=== PATIENT | female | born 1990 | race Caucasian/White ===

== ENCOUNTER 2017-02-15 13:47 | Emergency (ER) | payer OTHER ==
--- NOTE | 2017-02-15 16:19 | ED ORDER SUMMARY ---
..... Patient: DALLAS RODGERS OrderSheet [facility] VisitID: [id number] [place] [address] 26y, F Registration Date/Time: 02/15/2017 ORDER SHEET Weight: 81.6 kg (stated) Allergies: Codeine GENERAL ORDERS: CBC w Diff Urgent (14:12 02/15/2017 PHutchinson DO) (Ack 14:17 RKaruga) (14:49 Champ R.N.) CMP Urgent (14:12 02/15/2017 PHutchinson DO) (Ack 14:17 RKaruga) (14:49 Champ R.N.) UA-Culture if indicated Urgent (14:12 02/15/2017 PHutchinson DO) (Ack 14:17 RKaruga) (14:49 Champ R.N.) Urine Drug Screen Urgent (14:12 02/15/2017 PHutchinson DO) (Ack 14:17 RKaruga) (14:49 Chapm R.N.) Urine Urgent (14:12 02/15/2017 PHutchinson DO) (Ack 14:17 RKaruga) (14:49 Champ R.N.) PCT (Procalcitonin) Urgent (14:12 02/15/2017 PHutchinson DO) (Ack 14:17 RKaruga) (14:49 Champ R.N.) TSH Urgent (14:13 02/15/2017 PHutchinson DO) (Ack 14:17 RKaruga) (14:49 Champ R.N.) Keno Writer (Continuous) (14:14 02/15/2017 PHutchinson DO) (14:16 Champ R.N.) Rapid Influenza Screen (Nasal Pharyngeal) (new car salesperson swab) Urgent (15:32 02/15/2017 PHutchinson DO) (Ack 15:36 Jony) (15:39 DIRKanders R.N.) MEDICATION ORDERS: Phenergan IV 12.5 mg (HIGH ALERT MEDICATION, NOW) (14:12 02/15/2017 PHutchinson DO) (Ack 14:16 Champ R.N.) (14:51 Champ R.N.) IV FLUIDS: IV NS : initial bolus 1000 mL (1000 mL/hr), then 500 mL/hr for X2 (NOW) (14:11 02/15/2017 [facility]) (Ack 14:16 Champ R.N.) (14:50 Champ R.N.) Zofran IV 4 mg (NOW) (14:11 02/15/2017 [facility]) (Ack 14:16 Champ R.N.) (14:50 Champ R.N.) Ativan IV 0.5 mg (HIGH ALERT MEDICATION, NOW) (14:12 02/15/2017 [facility]) (Ack 14:16 Champ R.N.) (14:51 Champ R.N.) Benadryl IV 50 mg (NOW) (14:12 02/15/2017 [facility]) (Ack 14:16 Champ R.N.) (Cancelled: Patient Vcwphal03:51 Champ R.N.) Dilaudid IV 1 mg (HIGH ALERT MEDICATION, NOW) (15:32 02/15/2017 [facility]) (15:51 Quirino R.N.) ORDER SHEET NOTES: [Electronically signed by Monalisa Espinoza R.N. (16:39 02/15/2017)] [Electronically signed by Robbin Mabry DO (18:01 02/15/2017)] [Electronically locked/signed by Monalisa Espinoza R.N. (16:39 02/15/2017)]
--- NOTE | 2017-02-15 16:19 | ED CLINICAL REPORT ---
Clinical Report - Physicians/Mid Levels [facility] [address] [place] [address] 02/15/2017 13:47 Patient: DALLAS RODGERS Time Seen: 14:01. Arrived- By private vehicle. Historian- patient. HISTORY OF PRESENT ILLNESS Chief Complaint: HEADACHE, DIZZINESS and NAUSEA (near syncope). This started about 2 hours ago and is still present. It was gradual in onset and has been waxing/waning. At its maximum, severity described as severe. When seen in the E.D., severity described as moderate. Modifying factors. Not worsened by anything. Not relieved by anything. The patient has had a headache. The headache has been similar to previous ones, fatigue and muscle aches. (Pt states she's under a lot of stress right now; concerned about loosing her job.). Similar symptoms previously: Recent medical care: The patient was seen recently in a clinic. REVIEW OF SYSTEMS The patient has had fever (6 days ago). No sore throat, difficulty breathing, chest pain, abdominal pain or nausea. No vomiting, diarrhea, black stools, bloody stools or difficulty with urination. No skin rash, calf pain or blackouts. The patient has had sinus drainage, nasal congestion and a mild cough and headache. She has had back pain. It has been similar to previous symptoms. No difficulty with ambulation. All systems otherwise negative, except as recorded above. PAST HISTORY Primary physician: Dr Whitt PROBLEMS: Cellulitis. Chronic Back Pain. Headache. Back Pain. Anxiety disorder. Ovarian Cyst. STD - Sexually Transmitted Disease. Pelvic Pain. Vaginal Discharge. Vaginitis. Pelvic Inflammatory Disease. Fall. Sprain. Ovarian Cyst [RuleOut]. SURGERIES: . Dilatation & Curettage. Knee Surgery. Laparoscopy. Tubal Ligation. SOCIAL HISTORY Never smoker. No alcohol use or drug use. Is a local resident. ADDITIONAL NOTES The nursing notes have been reviewed. PHYSICAL EXAM Vital Signs: 02/15/2017 13:54 BP: 126/88. HR: 89. RR: 18. O2 saturation: 98%. Temp: 98.1 F. Pain level now: 610. Appearance: Alert. Anxious. Patient in mild distress. Eyes: Eyes normal inspection. No scleral icterus or pale conjunctivae. ENT: Tenderness present to percussion/palpation of the sinuses: moderate right and left frontal tenderness, mild right and left ethmoid tenderness. No tenderness over the maxillary sinuses. Pharynx normal. No pharyngeal erythema or tonsillar exudate. The mucous membranes are not dry. Neck: Normal inspection. Neck supple. No meningeal signs. No neck stiffness or nuchal rigidity. Negative Brudzinski's sign and Kernig's sign. No JVD, carotid bruit or lymphadenopathy. CVS: Normal heart rate and rhythm. Heart sounds normal. Pulses normal. Respiratory: No respiratory distress. Breath sounds normal. Chest nontender. No decreased air movement, rales, rhonchi, wheezes or prolonged expiration. Abdomen: No visible injury. Soft and nontender. No mass. Obese. Back: Normal inspection. Skin: Skin warm and dry. Normal skin color. No rash. Normal skin turgor. Extremities: Extremities exhibit normal ROM. No lower extremity edema. Neuro: Oriented X 3. No motor deficit. No sensory deficit. Reflexes normal. Reflex exam: right biceps 2+, left biceps 2+, right patellar 2+, left patellar 2+, right Achilles 2+ and left Achilles 2+. LABS, X-RAYS, AND EKG Laboratory Tests: UA-Culture if indicated: (WILLIAM: 02/15/2017 14:30) ( MsgRcvd 02/15/2017 15:01) Final results Test Result Flag Units (Reference) URINE COLOR YELLOW URINE APPEARANCE CLEAR URINE GLUCOSE NEGATIVE (NEGATIVE) URINE BILIRUBIN NEGATIVE (NEGATIVE) URINE KETONE NEGATIVE (NEGATIVE) URINE SPECIFIC GRAVITY 1.015 (1.010-1.030) URINE PH 7.5 (5.0-8.0) URINE PROTEIN NEGATIVE (NEGATIVE) URINE UROBILINOGEN 0.2 EU/dL (0.2-1.0) URINE NITRITE NEGATIVE (NEGATIVE) URINE BLOOD NEGATIVE (NEGATIVE) URINE LEUK ESTERASE NEGATIVE (NEGATIVE) URINE RBC NONE SEEN rbc/hpf (0-1) URINE WBC NONE SEEN wbc/hpf (0-1) URINE EPITHELIAL CELLS 0-1 EPI/hpf (0-5) URINE BACTERIA NONE SEEN (NONE SEEN) URINE COMMENT CULT NOT INDICATED URINE CULTURES ARE SET-UP BASED ON THE FOLLOWING CRITERIA:POSITIVE NITRITEPOSITIVE LEUKOCYTE ESTERASEGREATER THAN 10 WHITE BLOOD CELLSMODERATE (2+) OR GREATER BACTERIA Urine: (WILLIAM: 02/15/2017 14:30) ( [facility] 02/15/2017 14:58) Final results Test Result Flag Units (Reference) URINE NEGATIVE CBC w Diff: (WILLIAM: 02/15/2017 14:35) ( [facility] 02/15/2017 15:00) Final results Test Result Flag Units (Reference) WHITE BLOOD COUNT 6.0 K/uL (4.5-11.5) RED BLOOD COUNT 4.10 M/uL (4.00-5.20) HEMOGLOBIN 11.8 L gm/dL (12.0-16.0) HEMATOCRIT 35.4 L % (36.0-46.0) MEAN CELL VOLUME 86 fL (80-100) MEAN CORPUSCULAR HGB 29 pg (26-34) MEAN CORPUSCULAR HGB CONC 33 g/dL (31-37) RED CELL DISTRIBUTION WIDTH 13.5 % (11.6-14.8) PLATELET COUNT 215 K/uL (150-400) NEUTROPHIL % 54.9 % (50-75) LYMPH % 33.7 % (25-40) MONO % 6.4 % (3-14) EOSINOPHIL % 3.9 % (0-4) BASOPHIL % 1.1 % (0-2) Urine Drug Screen: (WILLIAM: 02/15/2017 14:30) ( [facility] 02/15/2017 15:13) Final results Test Result Flag Units (Reference) AMPHETAMINE/METHAMPHETAMINE NEGATIVE (NEGATIVE) BARBITURATE NEGATIVE (NEGATIVE) BENZODIAZEPINE NEGATIVE (NEGATIVE) CANNABINOID NEGATIVE (NEGATIVE) COCAINE NEGATIVE (NEGATIVE) ECSTASY NEGATIVE (NEGATIVE) METHADONE NEGATIVE (NEGATIVE) OPIATE NEGATIVE (NEGATIVE) The urine drug screen is a qualitative screening test fordrug overdose and abuse. All screen results should beconsidered as presumptive.Drugs screened for are as follows:BenzodiazepinesCocaineAmphetamines/MetamphetaminesTHC (Tetrahydrocannabinol)OpiatesBarbituratesEcstasyMethadonePositive results are unconfirmed. For confirmation, notifythe lab for the specimen to be sent to the reference lab.All confirmations must be performed by a differentmethodology.The ingestion of natural herbal and plant productscontaining Ephedra/Ephedra metabolites can produce in urineone or more substances capable of cross reacting withamphetamine/methamphetamine immunoassays. These testsprovide a preliminary result only. A more specificalternative chemical method must be used to obtain aconfirmed analytical result. [id number]: (WILLIAM: 02/15/2017 14:35) ( MsgRcvd 02/15/2017 15:51) Final results Test Result Flag Units (Reference) PROCALCITONIN <0.5 ng/mL (0-0.5) PCT Concentration: Interpretation : Risk/option for action PCT <=0.5 ng/mL : Systemic : Low risk forinfection(sepsis): progression to severeis not likely. : systemic infection.Local bacterial : CAUTION-PCT levelsinfection is : below 0.5 ng/mL do notpossible. : exclude an infection,because localizedinfections (withoutsystemic signs) may beassociated with suchlow levels. If PCT ismeasured very earlyafter a bacterialchallenge (usually <6hours), these valuesmay still be low. Inthis case PCT shouldbe re-assessed 6-24hours later. PCT >0.5 and : Systemic infection: Moderate risk for<= 2 ng/mL : (sepsis) is : progression to severepossible, but : systemic infection.other conditions : The patient should beare known to : closely monitoredelevate PCT. : both clinically andby re-assessing PCTwithin 6-24 hours. PCT > 2 ng/mL : Systemic infection: High risk for(sepsis) is likely: progression to severeunless other : systemic infection.causes are known. : PCT >= 10 ng/mL : Important systemic: High likelihood ofinflammatory : severe sepsis orresponse, almost : septic shock.exclusively due to:severe bacterial :sepsis or septic :shock. : CMP: (WILLIAM: 02/15/2017 14:35) ( MsgRcvd 02/15/2017 15:23) Final results Test Result Flag Units (Reference) GLUCOSE 98 mg/dL (70-110) BUN 9 mg/dL (7-18) CREATININE 0.8 mg/dL (0.6-1.3) Estimated GFR >60 mL/min Estimated GFR- >60 mL/min Note: Persistent reduction over 3 months in eGFR<60 mL/min/1.73 m2 defines CKD. Patients with eGFR values>=60 mL/min/1.73 m2 may also have CKD if evidence ofpersistent proteinuria. Additional information may be foundat www.kidney.org. SODIUM 138 mmol/L (136-145) POTASSIUM 4.0 mmol/L (3.5-5.1) CHLORIDE 102 mmol/L (98-107) CARBON DIOXIDE 29 mmol/L (21-32) CALCIUM 9.0 mg/dL (8.5-10.1) TOTAL PROTEIN 7.3 g/dL (6.4-8.2) ALBUMIN 3.6 g/dL (3.3-5.0) BILIRUBIN, TOTAL 0.2 mg/dL (0.0-1.0) ALKALINE PHOSPHATASE 102 U/L (46-116) AST (SGOT) 13 L U/L (15-37) ALT (SGPT) 25 U/L (12-78) THYROID STIMULATING HORMONE 0.885 uIU/mL (0.34-3.74) Rapid Influenza Screen: (WILLIAM: 02/15/2017 15:45) ( MsgRcvd 02/15/2017 16:06) Final results SPECIMEN DESCRIPTION: ANIMAL NUTRITION TEACHER SWAB Test Result Flag Units (Reference) RAPID INFLUENZA SCREEN DATE: 02/15/17 INFLUENZA A: NEGATIVE SCREEN FOR INFLUENZA A INFLUENZA B: NEGATIVE SCREEN FOR INFLUENZA B . Pulse Oximetry: 02/15/2017 13:54 O2 saturation: 98%. (FIO2 - room air). Interpretation: normal. PROGRESS AND PROCEDURES Course of Care: Normal Saline 1 liter IVPB given. Ativan 0.5mg IVP given. Benadryl 50 mg IVP given. Phenergan 12.5 mg IVP given. Zofran 4 mg IVP given. Dilaudid 1 mg IVP given. Patient is stable. Physical exam findings are improved. Symptoms better. Pt with prominent URI symptoms with marked sinus congestion. No meningeal signs or current fever or indication for CT or LP. I evaluated her in the ED aobut 1 1/2 years ago for a nonspecific, vascular HYLTON with a normal CT head at the time. She also admits to "a lot" of stress and anxiety. Radiation risk > likely benefit at this time (for CT). She will need close out pt follow up - I have arranged for next day f/u with her pcp's office. She will return to the ED and / or report to her pcp for new or worsening symptoms or any concerns. Patient/family counseled. Old ED records reviewed. Patient has had multiple ED visits (PDMP: #90 7.5 mg hydrocodone / apap on 12/30/2016 - Emma Negrete; 4 unique prescribers of narcotics in past 12 months; ROCAEL with 3 visits to [facility] ED in past 12 months). Disposition: Discharged. Condition: stable and improved. CLINICAL IMPRESSION Acute vascular headache. No aura. Acute ethmoidal and frontal sinusitis Acute viral sinusitis. Anxiety reaction. INSTRUCTIONS Do not work for three days. (Please see our "Pain Care Plan" - we can only use narcotic medications a maximum of three times in a 12 month period.). Warnings: Further evaluation is necessary. It is very important to follow up with a physician. SEDATIVE MEDICATION: You were given sedative medication during your visit. Do not drive or operate dangerous machinery. CONTROLLED SUBSTANCE WARNINGS. GENERAL WARNINGS: Return or contact your physician immediately if your condition worsens or changes unexpectedly, if not improving as expected, or if other problems arise. Your Current Medications: CONTINUE TAKING THE FOLLOWING MEDICATIONS: Flonase Nasal. Ibuprofen Oral. Vitamins Oral. PROzac Oral. Prescription Medications: Hydrocodone/APAP 5mg / 325mg: take 1 orally every 6 hours as needed for pain. Dispense ten (10). No refill. OTC Medications: Take nasal spray decongestant (such as Afrin) according to label instructions. Available over the counter. Acetaminophen (available over the counter): take according to label instructions. Motrin (available over the counter): take according to label instructions. Follow-up with: [facility], , , [address] [place] [address], , [place], Follow up tomorrow. Reason for referral: AN APPOINTMENT HAS BEEN MADE FOR YOU WITH YOUR DOCTOR'S OFFICE - DR WHITT - AT 1:00 PM TOMORROW - AT THE [facility] AT [address] [place] [address] IN [facility]. (Electronically signed by Robbin Mabry DO 02/15/2017 18:01)
--- NOTE | 2017-02-15 16:19 | ED NURSING NOTES ---
Clinical Report - Nurses [facility] [place] [address] 02/15/2017 13:47 Patient: DALLAS RODGERS TRIAGE Triage time 13:54. Acuity: LEVEL 3. Chief Complaint: HEADACHE, DIZZINESS and NAUSEA (near syncope). Alert. --14:02 Janna Garcia R.N. 13:54 02/15/17. BP: 126/88. HR: 89. RR: 18. O2 saturation: 98% on room air. Temp: 98.1 F (oral). Pain level now: 04/27. --14:02 Janna Garcia R.N. Weight: 81.6 kg stated. Height/Length: 65 inches Per Patient. BMI: 30. --13:59 Janna Garcia R.N. Medications PROzac Oral. --13:57 Janna Garcia R.N. Flonase Nasal. --13:57 Janna Garcia R.N. Vitamins Oral. --13:57 Janna Garcia R.N. Ibuprofen Oral. --13:58 Janna Garcia R.N. Medication/allergy information source: the patient. --14:02 Janna Garcia R.N. Allergies Codeine. --13:57 Janna Garcia R.N. History Arrived by private vehicle. Historian: patient. Accompanied by family. Primary physician (Jose Eduardo). Onset. (about 2 hours). ( states she's under a lot of stress right now , used 2 of her medications and then the symptoms started today). PAST MEDICAL HX: Last normal menstrual period- Aug 2016, had a baby and continues to breastfeed. SOCIAL HX: Never smoker. No alcohol use or drug use. FALL RISK ASSESSMENT: Fall risk assessment completed. No fall risk identified. FUNCTIONAL ASSESSMENT: Functional assessment: no impairments noted. LEARNING NEEDS ASSESSMENT: The learning needs assessment revealed no barriers. --14:02 Janna Garcia R.N. PROBLEMS: Cellulitis. Chronic Back Pain. Headache. Back Pain. Anxiety disorder. Ovarian Cyst. STD - Sexually Transmitted Disease. Pelvic Pain. Vaginal Discharge. Vaginitis. Pelvic Inflammatory Disease. Fall. Sprain. --13:58 Janna Garcia R.N. Ovarian Cyst [RuleOut]. --13:58 Janna Garcia R.N. ADDITIONAL SURGERIES: . Dilatation & Curettage. Knee Surgery. Laparoscopy. Tubal Ligation. --13:58 Janna Garcia R.N. Assessment GENERAL / NEURO / PSYCH: The patient is awake and alert, is oriented and cooperative and appears uncomfortable. She has poor eye contact. RESPIRATORY: Respirations not labored. SKIN: Skin is warm and dry. --14:02 Janna Garcia R.N. Interventions ID and allergy band on patient. To treatment room. --14:02 Janna Garcia R.N. PHYSICAL ASSESSMENT 14:06 02/15/17. Ambulatory to room. Patient gowned. GENERAL / NEURO / PSYCH: The patient is awake and alert, is oriented and cooperative and appears uncomfortable. RESPIRATORY: Respirations not labored. SKIN: Skin is warm and dry. --14:06 Janna Garcia R.N. NURSING PROGRESS NOTES 14:07 02/15/17. auto damage estimator, pulse oximeter and NIBP monitor placed on patient. Patient gowned. Head of bed elevated. Call light placed in reach. Side rails up x 1. Bed placed in lowest position. Brakes of bed on. --14:07 Janna Garcia R.N. 14:35 02/15/2017 Site #1 started via IV in the right antecubital space with an 20g angiocath, with aseptic technique and good blood return; one attempt. Blood drawn: rainbow set. Labeled in the presence of the patient and sent to the lab. --14:49 Janna Garcia R.N. 14:50 02/15/2017 Started bag #1 1000 mL IV Fluids IV NS (Saline); at 999 mL/hr over 1 hour(s) via site #1 via IV pump. IV patency established. IV site checked: no pain, redness, or swelling. IV flushed thoroughly pre- and post-medication administration. --14:50 Janna Garcia R.N. 14:50 02/15/2017 Zofran (Ondansetron HCl) IVP 4 mg given over 2 minute(s) via site #1. Allergies verified and confirmed 5 rights. IV patency established. IV site checked: no pain, redness, or swelling. IV flushed thoroughly pre- and post-medication administration. IVP given by RN. --14:50 Janna Garcia R.N. 14:51 02/15/2017 PHENERGAN (Promethazine HCl) IVP 12.5 mg given over 2 minute(s) via site #1. Allergies verified and confirmed 5 rights. IV patency established. IV site checked: no pain, redness, or swelling. IV flushed thoroughly pre- and post-medication administration. IVP given by RN. --14:51 Janna Garcia R.N. 14:51 02/15/2017 Ativan (LORazepam) IVP 0.5 mg given over 2 minute(s) via site #1. Allergies verified, confirmed 5 rights and sedative warning given to the patient. IV patency established. IV site checked: no pain, redness, or swelling. IV flushed thoroughly pre- and post-medication administration. IVP given by RN. --14:51 Janna Garcia R.N. 14:52 pt refused the Benadry because it makes her "anxious", asked if he was giving her "anything for pain". --14:53 Janna Garcia R.N. 15:51 02/15/2017 Dilaudid (HYDROmorphone HCl PF) IVP 1 mg given over 2 minute(s) via site #1. Allergies verified, confirmed 5 rights and sedative warning given to the patient. IV patency established. IV site checked: no pain, redness, or swelling. IV flushed thoroughly pre- and post-medication administration. IVP given by RN. --15:51 Monalisa Espinoza R.N. ( Patient still has HYLTON, she was up to use the restroom and she was placed back on monitors, she says nothing is needed at this time, mother is sitting at patients bedside.). --15:54 Monalisa Espinoza R.N. 15:54 02/15/17. BP: 130/75 (regular adult cuff) taken on the left arm, while lying. HR: 75. RR: 18 (regular). O2 saturation: 98% on room air. Pain level now: 01/25. --15:55 Monalisa Espinoza R.N. 16:15 02/15/2017 Dilaudid IVP Response: pain is improving. Symptoms have improved the patient feels better. --16:15 Monalisa Espinoza R.N. 16:15 02/15/17. BP: 130/75 (regular adult cuff) taken on the left arm, while lying. HR: 74. RR: 16. O2 saturation: 98% on room air. Pain level now: 01/25. --16:16 Monalisa Espinoza R.N. DISPOSITION / DISCHARGE 15:35 02/15/2017 IV Fluids IV NS Discontinued: bag #1 completed. Total amount infused: 1000 mL. IV patency established. IV site checked: no pain, redness, or swelling. IV flushed thoroughly. --15:36 Monalisa Espinoza R.N. 16:29 02/15/2017 Site #1 removed upon discharge. Bandaid applied. --16:29 Monalisa Espinoza R.N. 16:36 02/15/17. Condition at departure: improved. No learning barriers present. Discharge instructions provided and reviewed with the patient. Reviewed warnings (sedative warning with dilaudid). Work note given. Patient verbalized understanding. Written instructions provided in [place]. The patient was discharged by the physician. She was discharged home and accompanied by Boss. She left the Emergency Department ambulatory and via private vehicle. Driving (Boss). ( Patient still feeling drousy and unsteady, will WC patient to the front of hospital for driver medic to coal picker. Patient has no further questions). --16:36 Monalisa Espinoza R.N. 16:27 02/15/17. BP: 121/72 (regular adult cuff) taken on the left arm, while lying. HR: 75. RR: 16 (regular). O2 saturation: 99% on room air. Temp: 97.6 F (oral). Pain level now: 01/25. --16:36 Monalisa Espinoza R.N. Departure time: 16:36 Feb 15 2017. --16:39 Monalisa Espinoza R.N. Locked/Released at 02/15/2017 16:39 by Monalisa Espinoza R.N.
--- NOTE | 2017-02-15 16:19 | ED CLINICAL REPORT ---
Clinical Report - Physicians/Mid Levels [facility] [address] [place] [address] 02/15/2017 13:47 Patient: DALLAS RODGERS Time Seen: 14:01. Arrived- By private vehicle. Historian- patient. HISTORY OF PRESENT ILLNESS Chief Complaint: HEADACHE, DIZZINESS and NAUSEA (near syncope). This started about 2 hours ago and is still present. It was gradual in onset and has been waxing/waning. At its maximum, severity described as severe. When seen in the E.D., severity described as moderate. Modifying factors. Not worsened by anything. Not relieved by anything. The patient has had a headache. The headache has been similar to previous ones, fatigue and muscle aches. (Pt states she's under a lot of stress right now; concerned about loosing her job.). Similar symptoms previously: Recent medical care: The patient was seen recently in a clinic. REVIEW OF SYSTEMS The patient has had fever (6 days ago). No sore throat, difficulty breathing, chest pain, abdominal pain or nausea. No vomiting, diarrhea, black stools, bloody stools or difficulty with urination. No skin rash, calf pain or blackouts. The patient has had sinus drainage, nasal congestion and a mild cough and headache. She has had back pain. It has been similar to previous symptoms. No difficulty with ambulation. All systems otherwise negative, except as recorded above. PAST HISTORY Primary physician: Dr Whitt PROBLEMS: Cellulitis. Chronic Back Pain. Headache. Back Pain. Anxiety disorder. Ovarian Cyst. STD - Sexually Transmitted Disease. Pelvic Pain. Vaginal Discharge. Vaginitis. Pelvic Inflammatory Disease. Fall. Sprain. Ovarian Cyst [RuleOut]. SURGERIES: . Dilatation & Curettage. Knee Surgery. Laparoscopy. Tubal Ligation. SOCIAL HISTORY Never smoker. No alcohol use or drug use. Is a local resident. ADDITIONAL NOTES The nursing notes have been reviewed. PHYSICAL EXAM Vital Signs: 02/15/2017 13:54 BP: 126/88. HR: 89. RR: 18. O2 saturation: 98%. Temp: 98.1 F. Pain level now: 610. Appearance: Alert. Anxious. Patient in mild distress. Eyes: Eyes normal inspection. No scleral icterus or pale conjunctivae. ENT: Tenderness present to percussion/palpation of the sinuses: moderate right and left frontal tenderness, mild right and left ethmoid tenderness. No tenderness over the maxillary sinuses. Pharynx normal. No pharyngeal erythema or tonsillar exudate. The mucous membranes are not dry. Neck: Normal inspection. Neck supple. No meningeal signs. No neck stiffness or nuchal rigidity. Negative Brudzinski's sign and Kernig's sign. No JVD, carotid bruit or lymphadenopathy. CVS: Normal heart rate and rhythm. Heart sounds normal. Pulses normal. Respiratory: No respiratory distress. Breath sounds normal. Chest nontender. No decreased air movement, rales, rhonchi, wheezes or prolonged expiration. Abdomen: No visible injury. Soft and nontender. No mass. Obese. Back: Normal inspection. Skin: Skin warm and dry. Normal skin color. No rash. Normal skin turgor. Extremities: Extremities exhibit normal ROM. No lower extremity edema. Neuro: Oriented X 3. No motor deficit. No sensory deficit. Reflexes normal. Reflex exam: right biceps 2+, left biceps 2+, right patellar 2+, left patellar 2+, right Achilles 2+ and left Achilles 2+. LABS, X-RAYS, AND EKG Laboratory Tests: UA-Culture if indicated: (WILLIAM: 02/15/2017 14:30) ( MsgRcvd 02/15/2017 15:01) Final results Test Result Flag Units (Reference) URINE COLOR YELLOW URINE APPEARANCE CLEAR URINE GLUCOSE NEGATIVE (NEGATIVE) URINE BILIRUBIN NEGATIVE (NEGATIVE) URINE KETONE NEGATIVE (NEGATIVE) URINE SPECIFIC GRAVITY 1.015 (1.010-1.030) URINE PH 7.5 (5.0-8.0) URINE PROTEIN NEGATIVE (NEGATIVE) URINE UROBILINOGEN 0.2 EU/dL (0.2-1.0) URINE NITRITE NEGATIVE (NEGATIVE) URINE BLOOD NEGATIVE (NEGATIVE) URINE LEUK ESTERASE NEGATIVE (NEGATIVE) URINE RBC NONE SEEN rbc/hpf (0-1) URINE WBC NONE SEEN wbc/hpf (0-1) URINE EPITHELIAL CELLS 0-1 EPI/hpf (0-5) URINE BACTERIA NONE SEEN (NONE SEEN) URINE COMMENT CULT NOT INDICATED URINE CULTURES ARE SET-UP BASED ON THE FOLLOWING CRITERIA:POSITIVE NITRITEPOSITIVE LEUKOCYTE ESTERASEGREATER THAN 10 WHITE BLOOD CELLSMODERATE (2+) OR GREATER BACTERIA Urine: (WILLIAM: 02/15/2017 14:30) ( [facility] 02/15/2017 14:58) Final results Test Result Flag Units (Reference) URINE NEGATIVE CBC w Diff: (WILLIAM: 02/15/2017 14:35) ( [facility] 02/15/2017 15:00) Final results Test Result Flag Units (Reference) WHITE BLOOD COUNT 6.0 K/uL (4.5-11.5) RED BLOOD COUNT 4.10 M/uL (4.00-5.20) HEMOGLOBIN 11.8 L gm/dL (12.0-16.0) HEMATOCRIT 35.4 L % (36.0-46.0) MEAN CELL VOLUME 86 fL (80-100) MEAN CORPUSCULAR HGB 29 pg (26-34) MEAN CORPUSCULAR HGB CONC 33 g/dL (31-37) RED CELL DISTRIBUTION WIDTH 13.5 % (11.6-14.8) PLATELET COUNT 215 K/uL (150-400) NEUTROPHIL % 54.9 % (50-75) LYMPH % 33.7 % (25-40) MONO % 6.4 % (3-14) EOSINOPHIL % 3.9 % (0-4) BASOPHIL % 1.1 % (0-2) Urine Drug Screen: (WILLIAM: 02/15/2017 14:30) ( [facility] 02/15/2017 15:13) Final results Test Result Flag Units (Reference) AMPHETAMINE/METHAMPHETAMINE NEGATIVE (NEGATIVE) BARBITURATE NEGATIVE (NEGATIVE) BENZODIAZEPINE NEGATIVE (NEGATIVE) CANNABINOID NEGATIVE (NEGATIVE) COCAINE NEGATIVE (NEGATIVE) ECSTASY NEGATIVE (NEGATIVE) METHADONE NEGATIVE (NEGATIVE) OPIATE NEGATIVE (NEGATIVE) The urine drug screen is a qualitative screening test fordrug overdose and abuse. All screen results should beconsidered as presumptive.Drugs screened for are as follows:BenzodiazepinesCocaineAmphetamines/MetamphetaminesTHC (Tetrahydrocannabinol)OpiatesBarbituratesEcstasyMethadonePositive results are unconfirmed. For confirmation, notifythe lab for the specimen to be sent to the reference lab.All confirmations must be performed by a differentmethodology.The ingestion of natural herbal and plant productscontaining Ephedra/Ephedra metabolites can produce in urineone or more substances capable of cross reacting withamphetamine/methamphetamine immunoassays. These testsprovide a preliminary result only. A more specificalternative chemical method must be used to obtain aconfirmed analytical result. [id number]: (WILLIAM: 02/15/2017 14:35) ( MsgRcvd 02/15/2017 15:51) Final results Test Result Flag Units (Reference) PROCALCITONIN <0.5 ng/mL (0-0.5) PCT Concentration: Interpretation : Risk/option for action PCT <=0.5 ng/mL : Systemic : Low risk forinfection(sepsis): progression to severeis not likely. : systemic infection.Local bacterial : CAUTION-PCT levelsinfection is : below 0.5 ng/mL do notpossible. : exclude an infection,because localizedinfections (withoutsystemic signs) may beassociated with suchlow levels. If PCT ismeasured very earlyafter a bacterialchallenge (usually <6hours), these valuesmay still be low. Inthis case PCT shouldbe re-assessed 6-24hours later. PCT >0.5 and : Systemic infection: Moderate risk for<= 2 ng/mL : (sepsis) is : progression to severepossible, but : systemic infection.other conditions : The patient should beare known to : closely monitoredelevate PCT. : both clinically andby re-assessing PCTwithin 6-24 hours. PCT > 2 ng/mL : Systemic infection: High risk for(sepsis) is likely: progression to severeunless other : systemic infection.causes are known. : PCT >= 10 ng/mL : Important systemic: High likelihood ofinflammatory : severe sepsis orresponse, almost : septic shock.exclusively due to:severe bacterial :sepsis or septic :shock. : CMP: (WILLIAM: 02/15/2017 14:35) ( MsgRcvd 02/15/2017 15:23) Final results Test Result Flag Units (Reference) GLUCOSE 98 mg/dL (70-110) BUN 9 mg/dL (7-18) CREATININE 0.8 mg/dL (0.6-1.3) Estimated GFR >60 mL/min Estimated GFR- >60 mL/min Note: Persistent reduction over 3 months in eGFR<60 mL/min/1.73 m2 defines CKD. Patients with eGFR values>=60 mL/min/1.73 m2 may also have CKD if evidence ofpersistent proteinuria. Additional information may be foundat www.[email or web address].org. SODIUM 138 mmol/L (136-145) POTASSIUM 4.0 mmol/L (3.5-5.1) CHLORIDE 102 mmol/L (98-107) CARBON DIOXIDE 29 mmol/L (21-32) CALCIUM 9.0 mg/dL (8.5-10.1) TOTAL PROTEIN 7.3 g/dL (6.4-8.2) ALBUMIN 3.6 g/dL (3.3-5.0) BILIRUBIN, TOTAL 0.2 mg/dL (0.0-1.0) ALKALINE PHOSPHATASE 102 U/L (46-116) AST (SGOT) 13 L U/L (15-37) ALT (SGPT) 25 U/L (12-78) THYROID STIMULATING HORMONE 0.885 uIU/mL (0.34-3.74) Rapid Influenza Screen: (WILLIAM: 02/15/2017 15:45) ( MsgRcvd 02/15/2017 16:06) Final results SPECIMEN DESCRIPTION: HEAD OF MARKETING ADOMETRY SWAB Test Result Flag Units (Reference) RAPID INFLUENZA SCREEN DATE: 02/15/17 INFLUENZA A: NEGATIVE SCREEN FOR INFLUENZA A INFLUENZA B: NEGATIVE SCREEN FOR INFLUENZA B . Pulse Oximetry: 02/15/2017 13:54 O2 saturation: 98%. (FIO2 - room air). Interpretation: normal. PROGRESS AND PROCEDURES Course of Care: Normal Saline 1 liter IVPB given. Ativan 0.5mg IVP given. Benadryl 50 mg IVP given. Phenergan 12.5 mg IVP given. Zofran 4 mg IVP given. Dilaudid 1 mg IVP given. Patient is stable. Physical exam findings are improved. Symptoms better. Pt with prominent URI symptoms with marked sinus congestion. No meningeal signs or current fever or indication for CT or LP. I evaluated her in the ED aobut 1 1/2 years ago for a nonspecific, vascular HYLTON with a normal CT head at the time. She also admits to "a lot" of stress and anxiety. Radiation risk > likely benefit at this time (for CT). She will need close out pt follow up - I have arranged for next day f/u with her pcp's office. She will return to the ED and / or report to her pcp for new or worsening symptoms or any concerns. Patient/family counseled. Old ED records reviewed. Patient has had multiple ED visits (PDMP: #90 7.5 mg hydrocodone / apap on 12/30/2016 - Emma Negrete; 4 unique prescribers of narcotics in past 12 months; ROCAEL with 3 visits to [facility] ED in past 12 months). Disposition: Discharged. Condition: stable and improved. CLINICAL IMPRESSION Acute vascular headache. No aura. Acute ethmoidal and frontal sinusitis Acute viral sinusitis. Anxiety reaction. INSTRUCTIONS Do not work for three days. (Please see our "Pain Care Plan" - we can only use narcotic medications a maximum of three times in a 12 month period.). Warnings: Further evaluation is necessary. It is very important to follow up with a physician. SEDATIVE MEDICATION: You were given sedative medication during your visit. Do not drive or operate dangerous machinery. CONTROLLED SUBSTANCE WARNINGS. GENERAL WARNINGS: Return or contact your physician immediately if your condition worsens or changes unexpectedly, if not improving as expected, or if other problems arise. Your Current Medications: CONTINUE TAKING THE FOLLOWING MEDICATIONS: Flonase Nasal. Ibuprofen Oral. Vitamins Oral. PROzac Oral. Prescription Medications: Hydrocodone/APAP 5mg / 325mg: take 1 orally every 6 hours as needed for pain. Dispense ten (10). No refill. OTC Medications: Take nasal spray decongestant (such as Afrin) according to label instructions. Available over the counter. Acetaminophen (available over the counter): take according to label instructions. Motrin (available over the counter): take according to label instructions. Follow-up with: [facility], , , [address] [place] [address], , [place], Follow up tomorrow. Reason for referral: AN APPOINTMENT HAS BEEN MADE FOR YOU WITH YOUR DOCTOR'S OFFICE - DR WHITT - AT 1:00 PM TOMORROW - AT THE [facility] AT [address] [place] [address] IN [facility]. (Electronically signed by Robbin Mabry DO 02/15/2017 18:01)
--- NOTE | 2017-02-15 16:19 | ED NURSING NOTES ---
Clinical Report - Nurses Merged With [facility] [address] [address] 02/15/2017 13:47 Patient: DALLAS RODGERS TRIAGE Triage time 13:54. Acuity: LEVEL 3. Chief Complaint: HEADACHE, DIZZINESS and NAUSEA (near syncope). Alert. --14:02 Janna Garcia R.N. 13:54 02/15/17. BP: 126/88. HR: 89. RR: 18. O2 saturation: 98% on room air. Temp: 98.1 F (oral). Pain level now: 04/27. --14:02 Janna Garcia R.N. Weight: 81.6 kg stated. Height/Length: 65 inches Per Patient. BMI: 30. --13:59 Janna Garcia R.N. Medications PROzac Oral. --13:57 Janna Garcia R.N. Flonase Nasal. --13:57 Janna Garcia R.N. Vitamins Oral. --13:57 Janna Garcia R.N. Ibuprofen Oral. --13:58 Janna Garcia R.N. Medication/allergy information source: the patient. --14:02 Janna Garcia R.N. Allergies Codeine. --13:57 Janna Garcia R.N. History Arrived by private vehicle. Historian: patient. Accompanied by family. Primary physician (Jose Eduardo). Onset. (about 2 hours). ( states she's under a lot of stress right now , used 2 of her medications and then the symptoms started today). PAST MEDICAL HX: Last normal menstrual period- Aug 2016, had a baby and continues to breastfeed. SOCIAL HX: Never smoker. No alcohol use or drug use. FALL RISK ASSESSMENT: Fall risk assessment completed. No fall risk identified. FUNCTIONAL ASSESSMENT: Functional assessment: no impairments noted. LEARNING NEEDS ASSESSMENT: The learning needs assessment revealed no barriers. --14:02 Janna Garcia R.N. PROBLEMS: Cellulitis. Chronic Back Pain. Headache. Back Pain. Anxiety disorder. Ovarian Cyst. STD - Sexually Transmitted Disease. Pelvic Pain. Vaginal Discharge. Vaginitis. Pelvic Inflammatory Disease. Fall. Sprain. --13:58 Janna Garcia R.N. Ovarian Cyst [RuleOut]. --13:58 Janna Garcia R.N. ADDITIONAL SURGERIES: . Dilatation & Curettage. Knee Surgery. Laparoscopy. Tubal Ligation. --13:58 Janna Garcia R.N. Assessment GENERAL / NEURO / PSYCH: The patient is awake and alert, is oriented and cooperative and appears uncomfortable. She has poor eye contact. RESPIRATORY: Respirations not labored. SKIN: Skin is warm and dry. --14:02 Janna Garcia R.N. Interventions ID and allergy band on patient. To treatment room. --14:02 Janna Garcia R.N. PHYSICAL ASSESSMENT 14:06 02/15/17. Ambulatory to room. Patient gowned. GENERAL / NEURO / PSYCH: The patient is awake and alert, is oriented and cooperative and appears uncomfortable. RESPIRATORY: Respirations not labored. SKIN: Skin is warm and dry. --14:06 Janna Garcia R.N. NURSING PROGRESS NOTES 14:07 02/15/17. front desk monitor, pulse oximeter and NIBP monitor placed on patient. Patient gowned. Head of bed elevated. Call light placed in reach. Side rails up x 1. Bed placed in lowest position. Brakes of bed on. --14:07 Janna Garcia R.N. 14:35 02/15/2017 Site #1 started via IV in the right antecubital space with an 20g angiocath, with aseptic technique and good blood return; one attempt. Blood drawn: rainbow set. Labeled in the presence of the patient and sent to the lab. --14:49 Janna Garcia R.N. 14:50 02/15/2017 Started bag #1 1000 mL IV Fluids IV NS (Saline); at 999 mL/hr over 1 hour(s) via site #1 via IV pump. IV patency established. IV site checked: no pain, redness, or swelling. IV flushed thoroughly pre- and post-medication administration. --14:50 Janna Garcia R.N. 14:50 02/15/2017 Zofran (Ondansetron HCl) IVP 4 mg given over 2 minute(s) via site #1. Allergies verified and confirmed 5 rights. IV patency established. IV site checked: no pain, redness, or swelling. IV flushed thoroughly pre- and post-medication administration. IVP given by RN. --14:50 Janna Garcia R.N. 14:51 02/15/2017 PHENERGAN (Promethazine HCl) IVP 12.5 mg given over 2 minute(s) via site #1. Allergies verified and confirmed 5 rights. IV patency established. IV site checked: no pain, redness, or swelling. IV flushed thoroughly pre- and post-medication administration. IVP given by RN. --14:51 Janna Garcia R.N. 14:51 02/15/2017 Ativan (LORazepam) IVP 0.5 mg given over 2 minute(s) via site #1. Allergies verified, confirmed 5 rights and sedative warning given to the patient. IV patency established. IV site checked: no pain, redness, or swelling. IV flushed thoroughly pre- and post-medication administration. IVP given by RN. --14:51 Janna Garcia R.N. 14:52 pt refused the Benadry because it makes her "anxious", asked if he was giving her "anything for pain". --14:53 Janna Garcia R.N. 15:51 02/15/2017 Dilaudid (HYDROmorphone HCl PF) IVP 1 mg given over 2 minute(s) via site #1. Allergies verified, confirmed 5 rights and sedative warning given to the patient. IV patency established. IV site checked: no pain, redness, or swelling. IV flushed thoroughly pre- and post-medication administration. IVP given by RN. --15:51 Monalisa Espinoza R.N. ( Patient still has HYLTON, she was up to use the restroom and she was placed back on monitors, she says nothing is needed at this time, mother is sitting at patients bedside.). --15:54 Monalisa Espinoza R.N. 15:54 02/15/17. BP: 130/75 (regular adult cuff) taken on the left arm, while lying. HR: 75. RR: 18 (regular). O2 saturation: 98% on room air. Pain level now: 01/25. --15:55 Monalisa Espinoza R.N. 16:15 02/15/2017 Dilaudid IVP Response: pain is improving. Symptoms have improved the patient feels better. --16:15 Monalisa Espinoza R.N. 16:15 02/15/17. BP: 130/75 (regular adult cuff) taken on the left arm, while lying. HR: 74. RR: 16. O2 saturation: 98% on room air. Pain level now: 01/25. --16:16 Monalisa Espinoza R.N. DISPOSITION / DISCHARGE 15:35 02/15/2017 IV Fluids IV NS Discontinued: bag #1 completed. Total amount infused: 1000 mL. IV patency established. IV site checked: no pain, redness, or swelling. IV flushed thoroughly. --15:36 Monalisa Espinoza R.N. 16:29 02/15/2017 Site #1 removed upon discharge. Bandaid applied. --16:29 Monalisa Espinoza R.N. 16:36 02/15/17. Condition at departure: improved. No learning barriers present. Discharge instructions provided and reviewed with the patient. Reviewed warnings (sedative warning with dilaudid). Work note given. Patient verbalized understanding. Written instructions provided in [place]. The patient was discharged by the physician. She was discharged home and accompanied by Boss. She left the Emergency Department ambulatory and via private vehicle. Driving (Boss). ( Patient still feeling drousy and unsteady, will WC patient to the front of hospital for regional dedicated truck driver to pickle cutter. Patient has no further questions). --16:36 Monalisa Espinoza R.N. 16:27 02/15/17. BP: 121/72 (regular adult cuff) taken on the left arm, while lying. HR: 75. RR: 16 (regular). O2 saturation: 99% on room air. Temp: 97.6 F (oral). Pain level now: 01/25. --16:36 Monalisa Espinoza R.N. Departure time: 16:36 Feb 15 2017. --16:39 Monalisa Espinoza R.N. Locked/Released at 02/15/2017 16:39 by Monalisa Espinoza R.N.
--- NOTE | 2017-02-15 16:19 | ED ORDER SUMMARY ---
..... Patient: DALLAS RODGERS OrderSheet [facility] VisitID: [id number] [place] [address] 26y, F Registration Date/Time: 02/15/2017 ORDER SHEET Weight: 81.6 kg (stated) Allergies: Codeine GENERAL ORDERS: CBC w Diff Urgent (14:12 02/15/2017 PHutchinson DO) (Ack 14:17 RKaruga) (14:49 Champ R.N.) CMP Urgent (14:12 02/15/2017 PHutchinson DO) (Ack 14:17 RKaruga) (14:49 Champ R.N.) UA-Culture if indicated Urgent (14:12 02/15/2017 PHutchinson DO) (Ack 14:17 RKaruga) (14:49 Champ R.N.) Urine Drug Screen Urgent (14:12 02/15/2017 PHutchinson DO) (Ack 14:17 RKaruga) (14:49 Champ R.N.) Urine Urgent (14:12 02/15/2017 PHutchinson DO) (Ack 14:17 RKaruga) (14:49 Champ R.N.) PCT (Procalcitonin) Urgent (14:12 02/15/2017 PHutchinson DO) (Ack 14:17 RKaruga) (14:49 Champ R.N.) TSH Urgent (14:13 02/15/2017 PHutchinson DO) (Ack 14:17 RKaruga) (14:49 Champ R.N.) Furnace Installer (Continuous) (14:14 02/15/2017 PHutchinson DO) (14:16 Champ R.N.) Rapid Influenza Screen (Nasal Pharyngeal) (plant health care technician swab) Urgent (15:32 02/15/2017 PHutchinson DO) (Ack 15:36 Jony) (15:39 DIRKanders R.N.) MEDICATION ORDERS: Phenergan IV 12.5 mg (HIGH ALERT MEDICATION, NOW) (14:12 02/15/2017 PHutchinson DO) (Ack 14:16 Champ R.N.) (14:51 Champ R.N.) IV FLUIDS: IV NS : initial bolus 1000 mL (1000 mL/hr), then 500 mL/hr for X2 (NOW) (14:11 02/15/2017 [facility]) (Ack 14:16 Champ R.N.) (14:50 Champ R.N.) Zofran IV 4 mg (NOW) (14:11 02/15/2017 [facility]) (Ack 14:16 Champ R.N.) (14:50 Champ R.N.) Ativan IV 0.5 mg (HIGH ALERT MEDICATION, NOW) (14:12 02/15/2017 [facility]) (Ack 14:16 Champ R.N.) (14:51 Champ R.N.) Benadryl IV 50 mg (NOW) (14:12 02/15/2017 [facility]) (Ack 14:16 Champ R.N.) (Cancelled: Patient Njncsou19:51 Champ R.N.) Dilaudid IV 1 mg (HIGH ALERT MEDICATION, NOW) (15:32 02/15/2017 [facility]) (15:51 Quirino R.N.) ORDER SHEET NOTES: [Electronically signed by Monalisa Espinoza R.N. (16:39 02/15/2017)] [Electronically signed by Robbin Mabry DO (18:01 02/15/2017)] [Electronically locked/signed by Monalisa Espinoza R.N. (16:39 02/15/2017)]
--- NOTE | 2017-02-15 18:01 | ED MED RECONCILIATION SUMMARY ---
Patient: DALLAS RODGERS Medication Reconciliation Report [facility] VisitID: [id number] [address] [place] [address] 26y, F Registration Date/Time: 02/15/2017 Weight: 81.6 kg Height/Length: 65 in. BMI: 30.0 ALLERGIES: Codeine The patient's Home Medications are listed below: CONTINUE TAKING THE FOLLOWING MEDICATIONS: Flonase Nasal Ibuprofen Oral Vitamins Oral PROzac Oral The source(s) of the original Home Medication information: patient The following Medications were given to the patient in the Emergency Department: IV NS IV Fluids bolus 0, then 999 mL/hr, administered: 02/15/2017 2:50:00 PM Zofran [IVP] IVP 4 mg, administered: 02/15/2017 2:50:00 PM PHENERGAN [IVP] IVP 12.5 mg, administered: 02/15/2017 2:51:00 PM Ativan [IVP] IVP 0.5 mg, administered: 02/15/2017 2:51:00 PM Dilaudid [IVP] IVP 1 mg, administered: 02/15/2017 3:51:00 PM The following Medications were prescribed to the patient: Take nasal spray decongestant (such as Afrin) according to label instructions. Available over the counter. -- Robbin Mabry DO Acetaminophen (available over the counter): take according to label instructions. -- Robbin Mabry DO Motrin (available over the counter): take according to label instructions. -- Robbin Mabry DO Hydrocodone/APAP 5mg / 325mg: take 1 orally every 6 hours as needed for pain. Dispense ten (10). No refill. -- Robbin Mabry DO
--- NOTE | 2017-02-15 18:01 | ED MAR SUMMARY ---
..... Medication Administration Record [facility] [address] [place] [address] Patient: DALLAS RODGERS Visit ID: [id number] 26y, F Weight: 81.6 kg Height/Length: 65 in BMI: 30 ALLERGIES: Codeine Start 14:50 02/15/2017 Janna Garcia R.N., Stop 15:35 02/15/2017 Monalisa Espinoza R.N. Medication Administered: IV NS (SALINE), Dose: IV Fluids over 1 hour(s), Rate: 999 mL/hr, Dispensed: 1000 mL bag, Site: #1 right AC. Medication Ordered: IV NS : initial bolus 1000 mL (1000 mL/hr), then 500 mL/hr for X2 (NOW). Given 14:50 02/15/2017 Janna Garcia R.N. Medication Administered: ZOFRAN [IVP] (ONDANSETRON HCL), Dose: 4 mg IVP over 2 minute(s), Site: #1 right AC. Medication Ordered: Zofran IV 4 mg (NOW). Given 14:51 02/15/2017 Janna Garcia R.N. Medication Administered: PHENERGAN [IVP] (PROMETHAZINE HCL), Dose: 12.5 mg IVP over 2 minute(s), Site: #1 right AC. Medication Ordered: Phenergan IV 12.5 mg (HIGH ALERT MEDICATION, NOW). Given 14:51 02/15/2017 Janna Garcia R.N. Medication Administered: ATIVAN [IVP] (LORAZEPAM), Dose: 0.5 mg IVP over 2 minute(s), Site: #1 right AC. Medication Ordered: Ativan IV 0.5 mg (HIGH ALERT MEDICATION, NOW). Given 15:51 02/15/2017 Monalisa Espinoza R.N. Medication Administered: DILAUDID [IVP] (HYDROMORPHONE HCL PF), Dose: 1 mg IVP over 2 minute(s), Site: #1 right AC. Medication Ordered: Dilaudid IV 1 mg (HIGH ALERT MEDICATION, NOW).
--- NOTE | 2017-02-15 18:01 | ED MED RECONCILIATION SUMMARY ---
Patient: DALLAS RODGERS Medication Reconciliation Report [facility] VisitID: [id number] [address] [place] [address] 26y, F Registration Date/Time: 02/15/2017 Weight: 81.6 kg Height/Length: 65 in. BMI: 30.0 ALLERGIES: Codeine The patient's Home Medications are listed below: CONTINUE TAKING THE FOLLOWING MEDICATIONS: Flonase Nasal Ibuprofen Oral Vitamins Oral PROzac Oral The source(s) of the original Home Medication information: patient The following Medications were given to the patient in the Emergency Department: IV NS IV Fluids bolus 0, then 999 mL/hr, administered: 02/15/2017 2:50:00 PM Zofran [IVP] IVP 4 mg, administered: 02/15/2017 2:50:00 PM PHENERGAN [IVP] IVP 12.5 mg, administered: 02/15/2017 2:51:00 PM Ativan [IVP] IVP 0.5 mg, administered: 02/15/2017 2:51:00 PM Dilaudid [IVP] IVP 1 mg, administered: 02/15/2017 3:51:00 PM The following Medications were prescribed to the patient: Take nasal spray decongestant (such as Afrin) according to label instructions. Available over the counter. -- Robbin Mabry DO Acetaminophen (available over the counter): take according to label instructions. -- Robbin Mabry DO Motrin (available over the counter): take according to label instructions. -- Robbin Mabry DO Hydrocodone/APAP 5mg / 325mg: take 1 orally every 6 hours as needed for pain. Dispense ten (10). No refill. -- Robbin Mabry DO
--- NOTE | 2017-02-15 18:01 | ED DISCHARGE INSTRUCTIONS ---
Patient: DALLAS RODGERS General Instructions [facility] VisitID: [id number] [place] [address] 26y, F Registration Date/Time: 02/15/2017 Acute vascular headache. No aura. Acute ethmoidal and frontal sinusitis Acute viral sinusitis. Anxiety reaction. INSTRUCTIONS Do not work for three days. (Please see our "Pain Care Plan" - we can only use narcotic medications a maximum of three times in a 12 month period.). Warnings: Further evaluation is necessary. It is very important to follow up with a physician. SEDATIVE MEDICATION: You were given sedative medication during your visit. Do not drive or operate dangerous machinery. CONTROLLED SUBSTANCE WARNINGS. GENERAL WARNINGS: Return or contact your physician immediately if your condition worsens or changes unexpectedly, if not improving as expected, or if other problems arise. Your Current Medications: CONTINUE TAKING THE FOLLOWING MEDICATIONS: Flonase Nasal. Ibuprofen Oral. Vitamins Oral. PROzac Oral. Prescription Medications: Hydrocodone/APAP 5mg / 325mg: take 1 orally every 6 hours as needed for pain. Dispense ten (10). No refill. OTC Medications: Take nasal spray decongestant (such as Afrin) according to label instructions. Available over the counter. Acetaminophen (available over the counter): take according to label instructions. Motrin (available over the counter): take according to label instructions. Follow-up with: [facility], , , [address] [place] [address], [facility], Follow up tomorrow. Reason for referral: AN APPOINTMENT HAS BEEN MADE FOR YOU WITH YOUR DOCTOR'S OFFICE - DR JAEGER - AT 1:00 PM TOMORROW - AT THE [facility] AT [address] [place] [address] IN [facility]. ADDITIONAL INFORMATION Headache [Unspecified] The cause of your headache today is not clear, but it does not appear to be the sign of any serious illness. Under stress, some people tense the muscles of their shoulder, neck and scalp without knowing it. If this condition lasts long enough, a TENSION HEADACHE can occur. A MIGRAINE HEADACHE is caused by changes in blood flow to the brain. A migraine attack may be triggered by emotional stress, hormone changes during the menstrual cycle, oral contraceptives, alcohol use, certain foods containing tyramine, eye strain, weather changes, missing meals, lack of sleep or oversleeping. Other causes of headache include a viral illness with high fever, head injury with concussion, sinus, ear or throat infection, dental pain and TMJ (jaw joint) pain. More serious but less common causes of headache include stroke, brain hemorrhage, brain tumor, meningitis and encephalitis. Home Care: If you were given pain medicine for this headache, do not drive yourself home. Arrange for a ride, instead. When you get home, try to sleep. You should feel much better when you wake up. Apply heat to the back of your neck to relieve neck muscle spasm. Migraine headaches may respond best to an ice pack on the forehead or at the base of the skull. If you are having nausea or vomiting, follow a light diet until your headache is relieved. If you have a migraine type headache, use sunglasses when in the daylight or around bright indoor lighting until symptoms improve. Bright glaring light can worsen this kind of headache. Follow Up with your doctor if the headache is not better within the next 24 hours. If you have frequent headaches you should discuss a treatment plan with your primary care doctor. By being aware of the earliest signs of headache, and starting treatment right away, you may be able to stop the pain yourself. Get Prompt Medical Attention if any of the following occur: Worsening of your head pain or no improvement within 24 hours Repeated vomiting (unable to keep liquids down) Fever of 100.4F (38C) or higher, or as directed by your healthcare provider Stiff neck Extreme drowsiness, confusion or fainting Dizziness, vertigo (dizziness with spinning sensation) Weakness of an arm or leg or one side of the face Difficulty with speech or vision Sinusitis [Abx Tx] The sinuses are air-filled spaces within the bones of the face. They connect to the inside of the nose. Sinusitis is an inflammation of the tissue lining the sinus cavity. Sinus inflammation can occur during a cold or hay-fever (allergies to pollens and other particles in the air) and cause symptoms of sinus congestion and fullness. A sinus infection causes fever, headache and facial pain. There is usually green or yellow drainage from the nose or into the back of the throat (post-nasal drip). Antibiotics are prescribed to treat this condition. Home Care: Drink plenty of water, hot tea, and other liquids to stay well hydrated. This thins the mucus and promotes sinus drainage. Apply heat to the painful areas of the face. Use a towel soaked in hot water. Or, ic designer standard cells the shower and direct the hot spray onto your face. This is a good way to inhale warm water vapor and get heat on your face at the same time. (Cover your mouth and nose with your hands so you can still breathe as you do this.) Use a vaporizer with products such as Duable Chinese VapoRub (contains menthol) at night. Suck on peppermint, menthol or eucalyptus hard candies during the day. An expectorant containing guaifenesin (such as Robitussin), helps to thin the mucus and promote drainage from the sinuses. Gibp-nyn-qjhfowq decongestants may be used unless a similar medicine was prescribed. Nasal sprays work the fastest. Use one that contains phenylephrine (Terrence-synephrine, Sinex and others) or oxymetazoline (Afrin). First blow the nose gently to remove mucus, then apply the drops. Do not use these medicines more often than directed on the label or for more than three days or symptoms may worsen. You may also use tablets containing pseudoephedrine (Sudafed). Many sinus remedies combine ingredients, which may increase side effects. Read the labels or ask the pharmacist for help. NOTE: Persons with high blood pressure should not use decongestants. They can raise blood pressure. Antihistamines are useful if allergies are a cause of your sinusitis. The mildest one is chlorpheniramine (available without a prescription). The dose for adults is 8-12mg three times a day. [NOTE: Do not use chlorpheniramine if you have glaucoma or if you are a man with trouble urinating due to an enlarged prostate.] Claritin (loratidine) is an antihistamine that causes less drowsiness and is a good alternative for daytime use. Do not use nasal rinses or irrigation during an acute sinus infection, unless advised by your doctor. Rinsing may spread the infection to other sinuses. You may use acetaminophen (Tylenol) or ibuprofen (Motrin, Advil) to control pain, unless another pain medicine was prescribed. [ NOTE: If you have chronic liver or kidney disease or ever had a stomach ulcer, talk with your doctor before using these medicines.] (Aspirin should never be used in anyone under 18 years of age who is ill with a fever. It may cause severe liver damage.) Finish the full course, even if you are feeling better after a few days. Follow Up with your doctor or this facility in one week or as instructed by our staff if not improving. Get Prompt Medical Attention if any of the following occur: Facial pain or headache becomes more severe Stiff neck Unusual drowsiness or confusion, or not acting like your normal self Swelling of the forehead or eyelids Vision problems including blurred or double vision Fever of 100.4F (38C) or higher, or as directed by your healthcare provider Seizure Viral Respiratory Illness [Adult] You have an Upper Respiratory Illness (URI) caused by a virus. This illness is contagious during the first few days. It is spread through the air by coughing and sneezing or by direct contact (touching the sick person and then touching your own eyes, nose or mouth). Most viral illnesses go away within 7-10 days with rest and simple home remedies. Sometimes, the illness may last for several weeks. Antibiotics will not kill a virus and are generally not prescribed for this condition. Home Care: 1) If symptoms are severe, rest at home for the first 2-3 days. When you resume activity, don't let yourself get too tired. 2) Avoid being exposed to cigarette smoke (yours or others). 3) Tylenol (acetaminophen) or ibuprofen (Advil, Motrin) will help fever, muscle aching and headache. (Persons under 18 with fever should not take aspirin since this may cause liver damage.) 4) Your appetite may be poor, so a light diet is fine. Avoid dehydration by drinking 6-8 glasses of fluids per day (water, soft drinks, juices, tea, soup). Extra fluids will help loosen secretions in the nose and lungs. 5) Sbjq-hlc-hccdycl cold medicines will not shorten the length of time youre sick, but they may be helpful for the following symptoms: cough (Robitussin DM); sore throat (Chloraseptic lozenges or spray); nasal and sinus congestion (Actifed, Sudafed, Chlortrimeton). Follow Up with your doctor or as advised if you dont improve over the next week. Get Prompt Medical Attention if any of the following occur: -- Cough with lots of colored sputum (mucus) or blood in your sputum -- Chest pain, shortness of breath, wheezing or have trouble breathing -- Severe headache; face, neck or ear pain -- Fever over 100.4 F (38.0 C) for more than three days -- You cant swallow due to throat pain Stress Reaction Anxiety is the feeling we all get when we think something bad might happen. It is a normal response to stress and usually causes only a mild reaction. When anxiety becomes more severe, emotions may interfere with daily life. In some cases, you may not even be aware of what it is youre anxious about! During an anxiety reaction, you may feel like you are helpless, nervous, depressed or irritable. Your body may show signs of anxiety in many ways. You may experience dry mouth, shakiness, dizziness, weakness, trouble breathing, chest pressure, headache, nausea, diarrhea, tiredness, inability to sleep or sexual problems. Home Care: 1) Try to locate the sources of stress in your life. They may not be obvious! These may include: -- Daily hassles of life which pile up (traffic jams, missed appointments, car troubles, etc.) -- Major life changes, both good (new baby, job promotion) and bad (loss of job, loss of loved one) -- Overload: feeling that you have too many responsibilities and can't take care of all of them at once -- Feeling helpless, feeling that your problems are beyond what youre able to solve 2) Notice how your body reacts to stress. Learn to listen to your body signals. This will help you take action before the stress becomes severe. 3) When you can, do something about the source of your stress. (Avoid hassles, limit the amount of change that happens in your life at one time and take a break when you feel overloaded). 4) Unfortunately, many stressful situations cannot be avoided. It is necessary to learn HOW TO MANAGE STRESS better. There are many proven methods that will reduce your anxiety. These include simple things like exercise, good nutrition and adequate rest. Also, there are certain techniques that are helpful: relaxation and breathing exercises, visualization, biofeedback and meditation. For more information about this, consult your doctor or go to a local bookstore and review the many books and tapes available on this subject. Follow Up If you feel that your anxiety is not responding to self-help measures, contact your doctor or make an appointment with a counselor. Get Prompt Medical Attention if any of the following occur: -- Your symptoms get worse -- Chest pain or trouble breathing -- Severe headache not relieved by rest and mild pain reliever -- Rapid or irregular heartbeat, fainting Hydrocodone Bitartrate, Acetaminophen Oral tablet What is this medicine? ACETAMINOPHEN; HYDROCODONE (a set a MINE maria elena fen; gail droe KOE done) is a pain reliever. It is used to treat mild to moderate pain. How should I use this medicine? Take this medicine by mouth. Swallow it with a full glass of water. Follow the directions on the prescription label. If the medicine upsets your stomach, take the medicine with food or milk. Do not take more than you are told to take. Talk to your holistic health practitioner regarding the use of this medicine in children. This medicine is not approved for use in children. What side effects may I notice from receiving this medicine? Side effects that you should report to your doctor or health post anesthesia care unit nurse as soon as possible: allergic reactions like skin rash, itching or hives, swelling of the face, lips, or tongue breathing problems confusion feeling faint or lightheaded, falls stomach pain yellowing of the eyes or skin Side effects that usually do not require medical attention (report to your doctor or health post anesthesia care unit nurse if they continue or are bothersome): nausea, vomiting stomach upset What may interact with this medicine? alcohol antihistamines isoniazid medicines for depression, anxiety, or psychotic disturbances medicines for sleep muscle relaxants naltrexone narcotic medicines (opiates) for pain phenobarbital ritonavir tramadol What if I miss a dose? If you miss a dose, take it as soon as you can. If it is almost time for your next dose, take only that dose. Do not take double or extra doses. Where should I keep my medicine? Keep out of the reach of children. This medicine can be abused. Keep your medicine in a safe place to protect it from theft. Do not share this medicine with anyone. Selling or giving away this medicine is dangerous and against the law. Store at room temperature between 15 and 30 degrees C (59 and 86 degrees F). Protect from light. Keep container tightly closed. Throw away any unused medicine after the expiration date. Discard unused medicine and used packaging carefully. Pets and children can be harmed if they find used or lost packages. What should I tell my health care provider before I take this medicine? They need to know if you have any of these conditions: brain tumor Crohn's disease, inflammatory bowel disease, or ulcerative colitis drink more than 3 alcohol-containing drinks per day drug abuse or addiction head injury heart or circulation problems kidney disease or problems going to the bathroom liver disease lung disease, asthma, or breathing problems an unusual or allergic reaction to acetaminophen, hydrocodone, other opioid analgesics, other medicines, foods, dyes, or preservatives or trying to get breast-feeding What should I watch for while using this medicine? Tell your doctor or health post anesthesia care unit nurse if your pain does not go away, if it gets worse, or if you have new or a different type of pain. You may develop tolerance to the medicine. Tolerance means that you will need a higher dose of the medicine for pain relief. Tolerance is normal and is expected if you take the medicine for a long time. Do not suddenly stop taking your medicine because you may develop a severe reaction. Your body becomes used to the medicine. This does NOT mean you are addicted. Addiction is a behavior related to getting and using a drug for a non-medical reason. If you have pain, you have a medical reason to take pain medicine. Your doctor will tell you how much medicine to take. If your doctor wants you to stop the medicine, the dose will be slowly lowered over time to avoid any side effects. You may get drowsy or dizzy when you first start taking the medicine or change doses. Do not drive, use machinery, or do anything that may be dangerous until you know how the medicine affects you. Stand or sit up slowly. There are different types of narcotic medicines (opiates) for pain. If you take more than one type at the same time, you may have more side effects. Give your health care provider a list of all medicines you use. Your doctor will tell you how much medicine to take. Do not take more medicine than directed. Call emergency for help if you have problems breathing. The medicine will cause constipation. Try to have a bowel movement at least every 2 to 3 days. If you do not have a bowel movement for 3 days, call your doctor or health post anesthesia care unit nurse. Too much acetaminophen can be very dangerous. Do not take Tylenol (acetaminophen) or medicines that contain acetaminophen with this medicine. Many non-prescription medicines contain acetaminophen. Always read the labels carefully. You have been given the following additional information: Headache, Unspecified Sinusitis, Abx Tx Uri, Viral, No Abx (Adult) Anxiety Reaction Hydrocodone Bitartrate, Acetaminophen Oral tablet Do not work for three days. (Electronically signed by Robbin Mabry DO 02/15/2017 18:01)
--- NOTE | 2017-02-15 18:01 | ED MAR SUMMARY ---
..... Medication Administration Record [facility] [address] [place] [address] Patient: DALLAS RODGERS Visit ID: [id number] 26y, F Weight: 81.6 kg Height/Length: 65 in BMI: 30 ALLERGIES: Codeine Start 14:50 02/15/2017 Janna Garcia R.N., Stop 15:35 02/15/2017 Monalisa Espinoza R.N. Medication Administered: IV NS (SALINE), Dose: IV Fluids over 1 hour(s), Rate: 999 mL/hr, Dispensed: 1000 mL bag, Site: #1 right AC. Medication Ordered: IV NS : initial bolus 1000 mL (1000 mL/hr), then 500 mL/hr for X2 (NOW). Given 14:50 02/15/2017 Janna Garcia R.N. Medication Administered: ZOFRAN [IVP] (ONDANSETRON HCL), Dose: 4 mg IVP over 2 minute(s), Site: #1 right AC. Medication Ordered: Zofran IV 4 mg (NOW). Given 14:51 02/15/2017 Janna Garcia R.N. Medication Administered: PHENERGAN [IVP] (PROMETHAZINE HCL), Dose: 12.5 mg IVP over 2 minute(s), Site: #1 right AC. Medication Ordered: Phenergan IV 12.5 mg (HIGH ALERT MEDICATION, NOW). Given 14:51 02/15/2017 Janna Garcia R.N. Medication Administered: ATIVAN [IVP] (LORAZEPAM), Dose: 0.5 mg IVP over 2 minute(s), Site: #1 right AC. Medication Ordered: Ativan IV 0.5 mg (HIGH ALERT MEDICATION, NOW). Given 15:51 02/15/2017 Monalisa Espinoza R.N. Medication Administered: DILAUDID [IVP] (HYDROMORPHONE HCL PF), Dose: 1 mg IVP over 2 minute(s), Site: #1 right AC. Medication Ordered: Dilaudid IV 1 mg (HIGH ALERT MEDICATION, NOW).
== END 2017-02-15 16:36 | disposition home or self-care (01) ==
LOC: ED SRH 13:47
DX: G44.1 Vascular headache, not elsewhere classified (principal); F41.1 Generalized anxiety disorder; J01.20 Acute ethmoidal sinusitis, unspecified; J01.10 Acute frontal sinusitis, unspecified; Z88.5 Allergy status to narcotic agent
CPT/HCPCS: 90004; 90100; 91400; 92760; 92761; 92762; 92763; 92764; 92765; 92766; 92767; 93004; 93070; 93140; 95059